=== PATIENT | female | born 2000 | race Caucasian/White ===

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

== ENCOUNTER 2022-06-13 17:06 | Emergency (ER) | payer MEDICAID ==
[~2022-06-13] VITALS: Ht 154.9 cm; Wt 55.8 kg
[~2022-06-13 17:06] MED LIST changes: +ENULOSE10 GM/15 M PO
== END 2022-06-13 20:22 | disposition home or self-care (01) ==
LOC: ED 17:06
DX: M23.92 Unspecified internal derangement of left knee (principal)
CPT/HCPCS: 84703; 96372; 99283; J1885

== ENCOUNTER 2023-01-19 16:44 | Emergency (ER) | payer MEDICAID ==
[~2023-01-19] VITALS: Ht 154.9 cm; Wt 55.2 kg
[2023-01-19] MEDS ORDERED: AMOX TR-K CLV1 EAC1 PO (17:15)
[2023-01-19 17:22] VITALS: BP 136/77
== END 2023-01-19 17:24 | disposition home or self-care (01) ==
LOC: ED 16:44
DX: L03.211 Cellulitis of face (principal); L02.01 Cutaneous abscess of face

== ENCOUNTER 2023-01-21 17:26 | Emergency (ER) | payer MEDICAID ==
[~2023-01-21] VITALS: Ht 154.9 cm; Wt 54.6 kg
[~2023-01-21 17:26] MED LIST changes: +AMOX TR-K CLV1 EAC1 PO
--- OUTSIDE RECORDS SUMMARY | 2023-01-21 17:35 | XMS ---
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 PHONE: Unknown VIKY BASS Physician Heel Brusher: Medical Current PHONE: Unknown Artur has no Care Guidelines for this patient. Care History Medical/Surgical 03/25/2018 [facility] - [facility]W CONTACTED PATIENT MOTHER- LADI DISCUSSED ED UTILIZATION VS PCP USAGE. - PATIENT JUST MOVED BACK TO THE AREA FROM [place]. CHW DISCUSSED PATIENT ESTABLISHING CARE WITH [facility] - PATIENT WAS ESTABLISHED BEFORE MOVING. - PATIENT MOTHER STATED SHE WOULD GO AND SIGN AN NORMA FOR PATIENT TO HAVE RECORDS TRANSFERRED TO [facility] SO PATIENT CAN ESTABLISH CARE IN THE AREA. E.D. VISIT COUNT (12 MO.) 3 ANAHI Holt 2, [facility] TOTAL 5 NOTE: Visits indicate total known visits. ED/UCC VISIT TRACKING (12 MO.) 01/21/2023 17:27 [facility] TYPE: Emergency COMPLAINT: - SKIN PROBLEM 01/19/2023 16:45 [facility] TYPE: Emergency COMPLAINT: - POSSIBLE ABCESS ON FACE DIAGNOSES: - Cellulitis of face - Cutaneous abscess of face - Localized swelling, mass and lump, head 09/03/2022 21:08 [facility] TYPE: Emergency COMPLAINT: - R06.00 DIAGNOSES: 0. Chest pain, unspecified 0. Dyspnea, unspecified 0. Unspecified abdominal pain 0. DIFF BREATHING 1. Chest pain, unspecified 2. Anxiety disorder, unspecified 09/02/2022 16:19 [facility] TYPE: Emergency COMPLAINT: - R10.9 DIAGNOSES: 0. Nausea 0. Unspecified abdominal pain 0. SIDE PAIN 0. SIDE PAIN [id number] 1. Right upper quadrant pain 2. Acquired absence of other specified parts of digestive tract 2. Right lower quadrant pain 06/13/2022 17:07 [facility] TYPE: Emergency COMPLAINT: - LT KNEE PAIN DIAGNOSES: - Pain in left knee - Unspecified internal derangement of left knee INPATIENT VISIT TRACKING (12 MO.) No inpatient visits to display in this time frame [email or web address]
[2023-01-21] MEDS ORDERED: NAPROXEN375 M1 PO (21:41)
[2023-01-21] MEDS ORDERED: HYDROCODON-ACE1 EA10 PO (21:57)
[2023-01-21 22:06] VITALS: BP 128/71
== END 2023-01-21 22:06 | disposition home or self-care (01) ==
LOC: ED 17:26
DX: L03.211 Cellulitis of face (principal)
CPT/HCPCS: 99282; A9270